=== PATIENT | female | born 1980 | race Caucasian/White ===

== ENCOUNTER 2016-10-01 18:46 | Inpatient (IN) | payer OTHER ==
[2016-10-01] VITALS (8 sets, daily range): BP systolic 108–129; BP diastolic 55–73
[~2016-10-01] VITALS: Ht 162.6 cm; Wt 75.0 kg
[2016-10-01] MEDS ORDERED: PRENTAB9 PO (18:55)
[2016-10-01] MEDS ORDERED: IRON65TA PO (18:55)
[2016-10-01] MEDS ORDERED: LACTATED RINGER'S 1000 ML IV STA (19:07)
[2016-10-01] MEDS ORDERED: AMPICILLIN SOD 2 GM in D5W MINI-BAG PLUS 100 ML IV STA (19:07)
[2016-10-01 19:28] LABS: MEAN CORPUSCULAR HEMOGLOBIN 32.9 pg (27.0-33.0); MEAN CORPUSCULAR HGB CONC 34.9 g/dl (32.0-36.5); RED CELL DISTRIBUTION WIDTH 13.4 % (11.5-14.5); WHITE BLOOD COUNT 10.6 K/mm3 (4.0-10.0)
--- NOTE | 2016-10-01 19:28 | HPEPDOC ---
Obstetrical History & Physical General Date of Admission Oct 01, 2016 at 18:46 History of Present Illness Sasha is a 35yo with SIUP at 40w3d presenting tonight with consistent painful ctx and loss of fluid at 1830. She has been porfirio all day, but became very regular and painful with loss of fluid. No vaginal bleeding. Good movement. Chief Complaint: Contractions, term, LOF, term Information Provided By: Patient Care Care: Good Care Dating Final EDC: Sep 28, 2016 Final EDC by: LMP Antepartum Course Diagnos(e)s Anemia of , advanced maternal age, hemorrhoids Height (inches): 64 Pre- weight (lbs.): 138 Admission Weight (lbs.): 166 Past Medical History Past Obstetrical History #1: Past Obstetrical History: Multigravida (three term svds, one early sab) Date of Delivery: Aug 24, 2000 Gestation: 40 Type of Delivery: Spontaneous Vaginal Del. Sex of Infant: Female Complications: No Past Obstetrical History #2: Past Obstetrical History: Multigravida Date of Delivery: Aug 24, 2005 Gestation: 40 Type of Delivery: Spontaneous Vaginal Del. Sex of : Male Complications: No Past Obstetrical History #3: Past Obstetrical History: Multigravida Date of Delivery: Sep 24, 2010 Gestation: 39 Type of Delivery: Spontaneous Vaginal Del. 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: Abnormal Pap (abnormal papsmear in 2011 with normals since) Past Medical History Medical History hemorrhoids Surgical History: Tonsilectomy, [place] Teeth Family History Significant Family History: No pertinent family hx Social History Marital Status: Family situation: Spouse/partner home Psychosocial History: No pertinent psych hx * Smoker: non-smoker Alcohol: denies Drugs: denies Imunizations Tdap status: current Influenza Status: current Allergies Coded Allergies: No Known Allergies (Unverified , 10/01/16) Medications Scheduled (Iron) 325 Mg Tab 325 MG PO BID Multivitamins/ ( 27-0.8 mg) 1 Tab Tab 1 TAB PO DAILY Physical Examination Physical Examination GENERAL: Alert and oriented times three. BREAST: . ABDOMEN: Gravid and non-tender to touch. FETUS: Is vertex (VTX) by sterile vaginal examination (SVE) EXTREMITIES: trace edema BLE Laboratory Data 24H LABS Laboratory Tests 2 10/01/16 18:51: Serology Scanned Report Hepatitis B Testing Urine Culture: No Growth Pertinent Laboratoy Data Blood Type: O+ RBC Antibody Screen: Negative HIV: Negative Hepatitis B: Negative Hepatitis C: Unknown Rapid Plasma Reagin: Nonreactive Rubella: Immune Varicella: Immune Chlamydia/Gonorrhea: Negative Group B Streptococcus: Positive Glucose Tolerance Test: 117 Anatomy Ultrasound Ultrasound Date: May 12, 2016 Placenta Location: Posterior Normal Anatomy: Yes Placenta Previa: No Steroid Therapy Steroid Therapy: No Vaginal Examination Dilation: 6 cm Effacement: 75% Station: -2 Cervical Consistency: Soft Cervical Position: Anterior Presentation: Cephalic presentation Assessment Heart Rate (FHR): 140 Variability: Moderate Accelerations: Positive Decelerations: None Tocometer Contractions: Yes Frequency: regular, every 2-4 min. Duration: greater than 60 seconds Strength: palpated as moderate, palpated as strong Assessment/Plan Assessment Sasha is a 35yo with SIUP at 40w3d with active labor and spontaneous rupture of membranes. Grossly ruptured. SCE /-2. Cephalic by SCE. Cat I tracing, regular ctx. GBS positive. course significant for AMA, anemia of , hemorrhoids. Plan Admit and orient Counseled and consented verbally for Diet: clear liquids Group B Streptococcus (GBS) positive, IV ampicillin 2g/1g Labs and intravenous (IV) per unit protocol Lactated Ringers (LR): Bolus 500 mL, then at 125 mL/hr Anticipate normal spontaneous delivery Does not desire epidural CROW WYMAN MD Oct 01, 2016 19:28
[2016-10-01] MEDS ORDERED: OXYTOCIN 30 UNITS IN 0.9% NaCl 500ML IV BAG (J2590) As Ordered ONE (21:30)
[2016-10-01] MEDS ORDERED: OXYTOCIN DRIP 30 UNITS in APPROPRIATE DILUENT 1 EA IV SCH (22:03)
--- NOTE | 2016-10-01 22:03 | DNPDOC ---
Delivery Note Delivery Note DATE OF DELIVERY: Oct 01, 2016 at 21:33 PREDELIVERY DIAGNOSIS: 40w3d gestation and labor. POST DELIVERY DIAGNOSIS: Delivered. 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 Crow Whitt MD ANESTHESIA: lidocaine ESTIMATED BLOOD LOSS: 150 mL. FINDINGS: 9 pound 1 ounce female infant, Score 9/9, no nuchal cord DELIVERY SUMMARY: Sasha is a 35yo G5 now P4014 who was admitted to L&D for active labor/SROM. She had an uncomplicated of a viable female at 2133 on 01 Oct 2016 at 40w3d. Head delivered OA, restituted BRANNON. No nuchal cord. Right anterior shoulder delivered followed by posterior shoulder and corpus. Cord clamped x2 and cut by FOB. Infant mouth/nares bulb suctioned. Spontaneous cry noted. Baby placed on mother's abdomen. Apgars 9/9, weight 4098g (9lb1oz). Cord blood obtained due to maternal blood type of O pos. With gentle downward guidance and suprapubic pressure, placenta delivered spontaneously and intact. Fundal massage performed; fundus at U and firm. Pitocin 30 units IV bolus administered. Inspection of perineum and vaginal wall revealed superficial right labial laceration reapproximated with 4.0 vicryl suture under 1% lidocaine local anesthesia with good hemostasis. Mom and in stable condition. CROW WHITT MD Oct 01, 2016 22:03
[2016-10-01] MEDS ORDERED: LIDOCAINE 1% MDV INJ 50 ML VIAL INFIL ONE (22:15)
[2016-10-01] MEDS ORDERED: DIBUCAINE 1% OINTMENT 30GM TOP PRN (22:15)
[2016-10-01] MEDS ORDERED: ANUSOL HC CREAM 30GM TOP PRN (22:15)
[2016-10-01] MEDS ORDERED: RHOGAM 300 MCG (1500 IU) INJ (J2790) IM SCH (22:15)
[2016-10-01] MEDS: IBUPROFEN 800 MG TAB PO PRN (22:26)
[2016-10-01] MEDS ORDERED: AMPICILLIN SOD 1 GM in D5W MINI-BAG PLUS 50 ML IV SCH (23:15)
[2016-10-02 00:15] VITALS: BP 131/79
[2016-10-02] MEDS: LR 1,000 ML IV SCH ×2 (03:07→19:07)
[2016-10-02] MEDS: ACETAMINOPHEN 500 MG TAB PO PRN ×2 (04:01→16:06)
[2016-10-02 06:06] VITALS: BP 105/54
--- NOTE | 2016-10-02 07:47 | IPNPDOC ---
Text Note Date of Service The patient was seen on 10/02/16. NOTE Sasha is a 35yo doing well on PPD 1 s/p uncomplicated at 40w3d after presenting for active labor/SROM. She is . Lochia normal, spontaneously voiding and ambulating without difficulty. Tolerating regular diet. Has pain related to hemorrhoids. Denies f/c/n/v/SOB/CP/PRIEST/abdominal pain. Vitals wnl, afebrile Exam: General: WDWN, NAD, resting comfortably Cardiac: S1S2 present, no murmur Lungs: CTAB without wheeze/crackles Abdomen: soft, NTTP, fundus firm at U Extremities: no tenderness of calves bilaterally Assessment: Sasha is a 35yo doing well on PPD 1 s/p uncomplicated at 40w3d after presenting for active labor/SROM. Vitals wnl, exam benign. No e/o infection, hemodynamically stable. Plan: -routine post- care -regular diet -encourage and ambulation -discharge meds: motrin, lanolin, minipill (if cannot flex, will put to Velasco) Dr. Crow Whitt MD [facility] OBGYManinder VS,Fishbone, I+O VS, Fishbone, I+O Laboratory Tests 10/01/16 19:15 Red Blood Count 4.43, Mean Corpuscular Volume 94.0, Mean Corpuscular Hemoglobin 32.9, Mean Corpuscular Hemoglobin Concent 34.9, Red Cell Distribution Width 13.4 Vital Signs Date Time Temp Pulse Resp B/P Pulse Ox O2 Delivery O2 Flow Rate FiO2 10/02/16 06:06 98.2 65 18 105/54 10/02/16 00:15 95 Room Air I&O- Last 24 Hours up to 6 AM 10/02/16 06:00 Intake Total 1905 ml Output Total 400 ml Balance 1505 ml CROW WHITT MD Oct 02, 2016 07:47
[2016-10-02] MEDS: DOCUSATE SODIUM 100 MG CAP PO SCH ×2 (10:28→20:51)
[2016-10-02] MEDS: PRENATAL VITAMIN TAB PO SCH (10:28)
[2016-10-02] MEDS: IBUPROFEN 800 MG TAB PO PRN ×2 (10:29→20:52)
[2016-10-02 10:30] VITALS: BP 116/67
[2016-10-02 18:00] VITALS: BP 130/76
[2016-10-03] MEDS: LR 1,000 ML IV SCH (03:01)
--- NOTE | 2016-10-03 05:02 | DS.PDOC ---
Discharge Summary General Date of Admission Oct 01, 2016 at 18:46 Date of Discharge [id number] Discharge Summary COMPLICATIONS/CHIEF COMPLAINT: Active labor at term ADMISSION DIAGNOSES: 1. Active labor DISCHARGE DIAGNOSES: 1. HOSPITAL COURSE: Patient was admitted in labor and had an uncomplicated delivery other than a small labial laceration, repaired successfully. She had an uncomplicated course thereafter. DISCHARGE MEDICATIONS: Motrin, Lanolin, Nor for control, proctofoam for hemorrhoids PHYSICAL EXAMINATION ON DISCHARGE: see prog note from this AM VITAL SIGNS: Please see below. DISCHARGE CONDITION: stable DISPOSITION: to home ACTIVITY: Nothing in the vagina for 6-8 weeks. Regular diet. DISCHARGE PLAN AND INSTRUCTIONS: follow up at 6 week visit Sessions Vital Signs/I&Os Vital Signs Date Time Temp Pulse Resp B/P Pulse Ox O2 Delivery O2 Flow Rate FiO2 10/02/16 18:00 98.2 74 16 130/76 96 Room Air I&O- Last 24 Hours up to 6 AM 10/03/16 06:00 Intake Total 480 ml Balance 480 ml Medications Scheduled (Iron) 325 Mg Tab 325 MG PO BID Multivitamins/ ( 27-0.8 mg) 1 Tab Tab 1 TAB PO DAILY Allergies Coded Allergies: No Known Allergies (Unverified , 10/01/16) SESSIONS,ROSIO Hartmann MD Oct 03, 2016 05:02
--- NOTE | 2016-10-03 05:03 | IPNPDOC ---
Text Note Date of Service The patient was seen on 10/03/16. NOTE PPD2 prog note No complaints. VB slowing, voiding, ambulatory, pain controlled, brst feeding going OK, bonding well. VSSAF Ut at U-2, firm LE no CCE a/p: Doing well. D/C to home, meds dispensed. Sessions VS,Migue, I+O VS, Migue, I+O Vital Signs Date Time Temp Pulse Resp B/P Pulse Ox O2 Delivery O2 Flow Rate FiO2 10/02/16 18:00 98.2 74 16 130/76 96 Room Air I&O- Last 24 Hours up to 6 AM 10/03/16 06:00 Intake Total 480 ml Balance 480 ml SESSIONS,ROSIO Hartmann MD Oct 03, 2016 05:03
[2016-10-03 06:34] VITALS: BP 120/61
[2016-10-03] MEDS: PRENATAL VITAMIN TAB PO SCH (08:08)
[2016-10-03] MEDS: DOCUSATE SODIUM 100 MG CAP PO SCH (08:08)
[2016-10-03] MEDS: IBUPROFEN 800 MG TAB PO PRN (09:14)
[2016-10-03] MEDS ORDERED: COLA100C PO (10:01)
[2016-10-03] MEDS ORDERED: ANUS2.5C2 TOP (10:01)
[2016-10-03] MEDS ORDERED: MOTR200T44 PO (10:01)
[2016-10-03] MEDS ORDERED: TYLE500T78 PO (10:01)
== END 2016-10-03 12:30 | disposition home or self-care (01) | DRG 775 ==
LOC: M LDI 18:46 → M OBS 10-02 00:03
PROVIDERS: ADMIT Obstetrics & Gynecology; ATTEND Obstetrics & Gynecology
PROC: 10E0XZZ Delivery of Products of Conception, External Approach (ICD-10-PCS; principal; 2016-10-01)
PROC: 0HQ9XZZ Repair Perineum Skin, External Approach (ICD-10-PCS; 2016-10-01)
DX: O48.0 Post-term pregnancy (principal); O22.43 Hemorrhoids in pregnancy, third trimester; Z37.0 Single live birth; Z3A.40 40 weeks gestation of pregnancy; O09.523 Supervision of elderly multigravida, third trimester; D64.9 Anemia, unspecified; O99.02 Anemia complicating childbirth; K64.8 Other hemorrhoids; O70.0 First degree perineal laceration during delivery

== ENCOUNTER 2016-10-19 14:31 | Emergency (ER) | payer OTHER ==
[~2016-10-19 14:31] MED LIST: ANUS2.5C2 TOP; COLA100C PO; IRON65TA PO; MOTR200T44 PO; PRENTAB9 PO; TYLE500T78 PO
--- NOTE | 2016-10-19 15:17 | EDDOCDS ---
Nurse's Notes [facility] Name: Sasha Patel Age: 35 yrs Sex: Female : 1980 Arrival Date: 10/19/2016 Time: 14:31 Bed TR8 Private MD: Rod [facility] [place] Diagnosis: Nonpurulent mastitis associated with Presentation: 10/19 14:36 Presenting complaint: Patient states: "clogged duct" on left breast, tender, "slightly ttb red", chills this morning. Adult Sepsis Screening: The patient does not have new or worsening altered mentation. Patient's respiratory rate is less than 22. Systolic blood pressure is greater than 100. Patient has a qSOFA score of 0- Negative Sepsis Screen. Suicide/Homicide risk assessment- the patient denies having any suicidal and/or homicidal ideations and does not present with any other emotional, behavioral or mental health complaints. Status: The patient is a dependent. Transition of care: patient was not received from another setting of care. 14:36 Acuity: KIERA Level 5 ttb 14:36 Method Of Arrival: Walkin/Carried/Asstd ttb Triage Assessment: 14:37 General: Appears in no apparent distress, well nourished, well groomed, Behavior is ttb appropriate for age, cooperative, pleasant. Pain: Location: left breast 5/10 with palpation. HIV screening NA for this visit Offered previously. Neurological: Level of Consciousness is awake, alert. Cardiovascular: Chest pain is denied. Respiratory: Airway is patent Denies cough, shortness of breath. Derm: Skin is normal. Derm: Reports red spot on left breast. Musculoskeletal: No deficits noted. Injury Description: No known injury. 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 ibuprofen 800 mg Oral tab 1 tab 4 times per day (Last dose: 10/19/2016 01:00) 2. Vitamin Oral tab 1 tab once daily (Last dose: 10/19/2016 08:00) - PMHx: none; - PSHx: Tonsillectomy; Adenoidectomy; - Social history: Smoking status: Patient states was never smoker of tobacco. Patient/guardian denies using alcohol, street drugs, No barriers to communication noted, The patient speaks fluent Palestinian, Speaks appropriately for age. - Family history: Not pertinent. - : The pt / caregiver states he / she is not on anticoagulants. Home medication list is obtained from the patient. - Exposure Risk Screening:: None identified. Screenin:14 Screening information is obtained from the patient. Fall risk: No risks identified. ms18 Assistance ADL's: requires no assistance with activities of daily living. Abuse/DV Screen: The patient / caregiver reports he/she is: not in a situation that causes fear, pain or injury. Nutritional screening: No deficits noted. Advance Directives: There is no living will. home support is adequate. Assessment: 15:14 General: Appears in no apparent distress, comfortable, Behavior is appropriate for age, ms18 cooperative. Pain: Location: left breast. Neurological: No deficits noted. Respiratory: No deficits noted. Derm: Skin is pink, warm & dry. redness/swelling noted to L breast. Vital Signs: 14:33 BP 123 / 63; Pulse 90; Resp 16; Temp 98.6(O); Pulse Ox 97% on R/A; Weight 62.6 kg (R); lr2 Height 5 ft. 4 in. (162.56 cm) (R); Pain 3/10; 14:33 Body Mass Index 23.69 (62.60 kg, 162.56 cm) lr2 Vitals: 14:33 Log In Time: October 19, 2016 at 14:31. lr2 ED Course: 14:33 Patient visited by Jennyfer Vaughn. lr2 14:33 Patient moved to Waiting lr2 14:34 NOEL Velasco is Private Physician. lr2 14:35 Patient moved to Pre RCE lr2 14:37 Triage Initiated ttb 14:45 Patient moved to Triage 2 ttb 14:46 Hay Benavides PA is PHCP. btw 14:46 Tomy Oviedo MD is Attending Physician. btw 14:49 Patient visited by Hay Benavides PA. btw 15:04 NOEL Velasco is Referral Physician. btw 15:14 Patient moved to TR8 ms18 15:14 The patient / caregiver is instructed regarding the plan of care and ED course. Patient ms18 has correct armband on for positive identification. Property sent home with patient. :Personal belongings accompany Pt. 15:14 No IV's were initiated during this patient's visit. No procedures done that require ms18 assistance. Order Results: There are currently no results for this order. Outcome: 15:04 Discharge ordered by Provider. btw 15:14 Discharge Assessment: Patient awake, alert and oriented x 3. No cognitive and/or ms18 functional deficits noted. Patient verbalized understanding of disposition instructions. patient administered narcotics - no. The following High Risk Discharge criteria are identified: None. Discharged to home ambulatory. Condition: good Condition: stable. Discharge instructions given to patient, Instructed on discharge instructions, follow up and referral plans. medication usage, Demonstrated understanding of instructions, medications, Pt was receptive of discharge instructions/ teaching. No special radiology studies were completed. 15:16 Patient left the ED. ms18 Signatures: Hay Benavides PA PA btw Conner, Teresa, RN RN ttAllyssa DennisonRN RN ms18 Jennyfer Vaughn2 BILL
--- NOTE | 2016-10-19 15:17 | EDDOCDS ---
Physician Documentation [facility] Name: Sasha Patel Age: 35 yrs Sex: Female : 1980 Arrival Date: 10/19/2016 Time: 14:31 Bed TR8 Private MD: NOEL Velasco Disposition: 10/19/16 15:04 Discharged to Home/Self Care. Impression: Nonpurulent mastitis associated with . - Condition is Stable. - Discharge Instructions: and Mastitis. - Prescriptions for Keflex 500 mg Oral Capsule - take 1 capsule by ORAL route every 8 hours for 10 days; 30 capsule. - Medication Reconciliation, Local Pharmacy Hours form. - Follow up: NOEL Velasco; When: Call to arrange an appointment; Reason: Further diagnostic work-up, Recheck today's complaints, Continuance of care. - Problem is new. - Symptoms are unchanged. Historical: - Allergies: No known drug Allergies; - Home Meds: 1. ibuprofen 800 mg Oral tab 1 tab 4 times per day (Last dose: 10/19/2016 01:00) 2. Vitamin Oral tab 1 tab once daily (Last dose: 10/19/2016 08:00) - PMHx: none; - PSHx: Tonsillectomy; Adenoidectomy; - Social history: Smoking status: Patient states was never smoker of tobacco. Patient/guardian denies using alcohol, street drugs, No barriers to communication noted, The patient speaks fluent Estonian, Speaks appropriately for age. - Family history: Not pertinent. - : The pt / caregiver states he / she is not on anticoagulants. Home medication list is obtained from the patient. - Exposure Risk Screening:: None identified. 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 4 in. (162.56 cm) (R); Pain 3/10; 14:33 Body Mass Index 23.69 (62.60 kg, 162.56 cm) lr2 Signatures: Hay Benavides PA PA btw Conner, Teresa, RN RN ttb Allyssa De Jesus,RN RN ms18 POONAMD
--- NOTE | 2016-10-21 16:17 | EDDOCDS ---
Physician Documentation [facility] Name: Sasha Patel Age: 35 yrs Sex: Female : 1980 Arrival Date: 10/19/2016 Time: 14:31 Bed TR8 Private MD: NOEL Velasco Disposition: 10/19/16 15:04 Discharged to Home/Self Care. Impression: Nonpurulent mastitis associated with . - Condition is Stable. - Discharge Instructions: and Mastitis. - Prescriptions for Keflex 500 mg Oral Capsule - take 1 capsule by ORAL route every 8 hours for 10 days; 30 capsule. - Medication Reconciliation, Local Pharmacy Hours form. - Follow up: NOEL Velasco; When: Call to arrange an appointment; Reason: Further diagnostic work-up, Recheck today's complaints, Continuance of care. - Problem is new. - Symptoms are unchanged. Historical: - Allergies: No known drug Allergies; - Home Meds: 1. ibuprofen 800 mg Oral tab 1 tab 4 times per day (Last dose: 10/19/2016 01:00) 2. Vitamin Oral tab 1 tab once daily (Last dose: 10/19/2016 08:00) - PMHx: none; - PSHx: Tonsillectomy; Adenoidectomy; - Social history: Smoking status: Patient states was never smoker of tobacco. Patient/guardian denies using alcohol, street drugs, No barriers to communication noted, The patient speaks fluent Upper Sorbian, Speaks appropriately for age. - Family history: Not pertinent. - : The pt / caregiver states he / she is not on anticoagulants. Home medication list is obtained from the patient. - Exposure Risk Screening:: None identified. 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 4 in. (162.56 cm) (R); Pain 3/10; 14:33 Body Mass Index 23.69 (62.60 kg, 162.56 cm) lr2 MDM: 15:36 [facility] [place] Payment Agreement was scanned into [employer] and attached to record. jp5 15:36 Financial registration complete. jp5 10/20 10: T-Sheet-- Draft Copy was scanned into [employer] and attached to record. gb Signatures: Naye Montero, Bobby Reg gb Hay Benavides PA PA btw Conner, Teresa, RN RN ttb Allyssa De JesusRN RN ms18 Perla Luna jp5 The chart was reviewed and I authenticate all verbal orders and agree with the evaluation and treatment provided.Attachments: 10/19 15:36 [facility] [place] Payment Agreement jp5 10/20 10:26 T-Sheet-- Draft Copy gb Chart Complete MTDD
--- NOTE | 2016-10-21 16:17 | EDDOCDS ---
Nurse's Notes [facility] Name: Sasha Patel Age: 35 yrs Sex: Female : 1980 Arrival Date: 10/19/2016 Time: 14:31 Bed TR8 Private MD: Rod [facility] [place] Diagnosis: Nonpurulent mastitis associated with Presentation: 10/19 14:36 Presenting complaint: Patient states: "clogged duct" on left breast, tender, "slightly ttb red", chills this morning. Adult Sepsis Screening: The patient does not have new or worsening altered mentation. Patient's respiratory rate is less than 22. Systolic blood pressure is greater than 100. Patient has a qSOFA score of 0- Negative Sepsis Screen. Suicide/Homicide risk assessment- the patient denies having any suicidal and/or homicidal ideations and does not present with any other emotional, behavioral or mental health complaints. Status: The patient is a dependent. Transition of care: patient was not received from another setting of care. 14:36 Acuity: KIERA Level 5 ttb 14:36 Method Of Arrival: Walkin/Carried/Asstd ttb Triage Assessment: 14:37 General: Appears in no apparent distress, well nourished, well groomed, Behavior is ttb appropriate for age, cooperative, pleasant. Pain: Location: left breast 5/10 with palpation. HIV screening NA for this visit Offered previously. Neurological: Level of Consciousness is awake, alert. Cardiovascular: Chest pain is denied. Respiratory: Airway is patent Denies cough, shortness of breath. Derm: Skin is normal. Derm: Reports red spot on left breast. Musculoskeletal: No deficits noted. Injury Description: No known injury. 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 ibuprofen 800 mg Oral tab 1 tab 4 times per day (Last dose: 10/19/2016 01:00) 2. Vitamin Oral tab 1 tab once daily (Last dose: 10/19/2016 08:00) - PMHx: none; - PSHx: Tonsillectomy; Adenoidectomy; - Social history: Smoking status: Patient states was never smoker of tobacco. Patient/guardian denies using alcohol, street drugs, No barriers to communication noted, The patient speaks fluent Cymraes, Speaks appropriately for age. - Family history: Not pertinent. - : The pt / caregiver states he / she is not on anticoagulants. Home medication list is obtained from the patient. - Exposure Risk Screening:: None identified. Screenin:14 Screening information is obtained from the patient. Fall risk: No risks identified. ms18 Assistance ADL's: requires no assistance with activities of daily living. Abuse/DV Screen: The patient / caregiver reports he/she is: not in a situation that causes fear, pain or injury. Nutritional screening: No deficits noted. Advance Directives: There is no living will. home support is adequate. Assessment: 15:14 General: Appears in no apparent distress, comfortable, Behavior is appropriate for age, ms18 cooperative. Pain: Location: left breast. Neurological: No deficits noted. Respiratory: No deficits noted. Derm: Skin is pink, warm & dry. redness/swelling noted to L breast. Vital Signs: 14:33 BP 123 / 63; Pulse 90; Resp 16; Temp 98.6(O); Pulse Ox 97% on R/A; Weight 62.6 kg (R); lr2 Height 5 ft. 4 in. (162.56 cm) (R); Pain 3/10; 14:33 Body Mass Index 23.69 (62.60 kg, 162.56 cm) lr2 Vitals: 14:33 Log In Time: October 19, 2016 at 14:31. lr2 ED Course: 14:33 Patient visited by Jennyfer Vaughn. lr2 14:33 Patient moved to Waiting lr2 14:34 NOEL Velasco is Private Physician. lr2 14:35 Patient moved to Pre RCE lr2 14:37 Triage Initiated ttb 14:45 Patient moved to Triage 2 ttb 14:46 Hay Benavides PA is PHCP. btw 14:46 Tomy Oviedo MD is Attending Physician. btw 14:49 Patient visited by Hay Benavides PA. btw 15:04 NOEL Velasco is Referral Physician. btw 15:14 Patient moved to TR8 ms18 15:14 The patient / caregiver is instructed regarding the plan of care and ED course. Patient ms18 has correct armband on for positive identification. Property sent home with patient. :Personal belongings accompany Pt. 15:14 No IV's were initiated during this patient's visit. No procedures done that require ms18 assistance. 15:23 Patient name changed from Sasha\\S\\\\S\\Patel\\S\\ to Sasha\\S\\Carli\\S\\Patel. EDMS 15:36 [facility] Payment Agreement was scanned into [employer] and attached to record. jp5 10/20 10:26 T-Sheet-- Draft Copy was scanned into [employer] and attached to record. gb Order Results: There are currently no results for this order. Outcome: 10/19 15:04 Discharge ordered by Provider. btw 15:14 Discharge Assessment: Patient awake, alert and oriented x 3. No cognitive and/or ms18 functional deficits noted. Patient verbalized understanding of disposition instructions. patient administered narcotics - no. The following High Risk Discharge criteria are identified: None. Discharged to home ambulatory. Condition: good Condition: stable. Discharge instructions given to patient, Instructed on discharge instructions, follow up and referral plans. medication usage, Demonstrated understanding of instructions, medications, Pt was receptive of discharge instructions/ teaching. No special radiology studies were completed. 15:16 Patient left the ED. ms18 Signatures: Dispatcher [employer] EDMS Naye Montero, Reg Reg gb Hay Benavides PA PA btw Conner, Teresa, RN RN Allyssa Rogers,GENE RN ms18 Perla Luna jp5 Jennyfer Vaughn2 Chart Complete MTDD
--- NOTE | 2016-10-21 16:17 | EDDOCDS ---
Physician Documentation [facility] Name: Sasha Patel Age: 35 yrs Sex: Female : 1980 Arrival Date: 10/19/2016 Time: 14:31 Bed TR8 Private MD: NOEL Velasco Disposition: 10/19/16 15:04 Discharged to Home/Self Care. Impression: Nonpurulent mastitis associated with . - Condition is Stable. - Discharge Instructions: and Mastitis. - Prescriptions for Keflex 500 mg Oral Capsule - take 1 capsule by ORAL route every 8 hours for 10 days; 30 capsule. - Medication Reconciliation, Local Pharmacy Hours form. - Follow up: NOEL Velasco; When: Call to arrange an appointment; Reason: Further diagnostic work-up, Recheck today's complaints, Continuance of care. - Problem is new. - Symptoms are unchanged. Historical: - Allergies: No known drug Allergies; - Home Meds: 1. ibuprofen 800 mg Oral tab 1 tab 4 times per day (Last dose: 10/19/2016 01:00) 2. Vitamin Oral tab 1 tab once daily (Last dose: 10/19/2016 08:00) - PMHx: none; - PSHx: Tonsillectomy; Adenoidectomy; - Social history: Smoking status: Patient states was never smoker of tobacco. Patient/guardian denies using alcohol, street drugs, No barriers to communication noted, The patient speaks fluent Malay, Speaks appropriately for age. - Family history: Not pertinent. - : The pt / caregiver states he / she is not on anticoagulants. Home medication list is obtained from the patient. - Exposure Risk Screening:: None identified. 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 4 in. (162.56 cm) (R); Pain 3/10; 14:33 Body Mass Index 23.69 (62.60 kg, 162.56 cm) lr2 MDM: 15:36 [facility] [place] Agreement was scanned into [employer] and attached to record. jp5 15:36 Financial registration complete. jp5 10/20 10: T-Sheet-- Draft Copy was scanned into [employer] and attached to record. gb Signatures: Naye Montero, Bobby Reg gb Hay Benavides PA PA btw Conner, Teresa, RN RN ttb Allyssa De JesusRN RN [id number] Perla Luna jp5 The chart was reviewed and I authenticate all verbal orders and agree with the evaluation and treatment provided.Attachments: 10/19 15:36 [facility] [place] Agreement jp5 10/20 10:26 T-Sheet-- Draft Copy gb Chart Complete MTDD
== END 2016-10-19 15:16 | disposition home or self-care (01) ==
LOC: M ED 14:31
DX: O91.22 Nonpurulent mastitis associated with the puerperium (principal)